=== PATIENT | male | born 1950 | race Caucasian/White ===

== ENCOUNTER 2018-01-03 17:14 | Emergency (ER) | payer SELFPAY, OTHER ==
[2018-01-03] MEDS: HYDROmorphONE 0.5 MG/0.5 ML SYG IM (18:40)
[2018-01-03] MEDS: KETOROLAC 30 MG INJ IM (18:40)
== END 2018-01-03 21:11 | disposition home or self-care (01) ==
LOC: FTE 17:14
DX: M54.5 Low back pain (principal); E11.9 Type 2 diabetes mellitus without complications
CPT/HCPCS: 72100; 96372; 99284-25